=== PATIENT | female | born 1990 | race Caucasian/White ===

== ENCOUNTER → 2016-08-02 | Outpatient (REF) | payer OTHER ==
[2016-08-02 15:50] LABS: FREE T4 0.86 NG/DL (0.76-1.46)
== END ==
LOC: M SFHCLERA 11:12
PROVIDERS: ATTEND Family Medicine
DX: E03.9 Hypothyroidism, unspecified (principal); E66.09 Other obesity due to excess calories

== ENCOUNTER → 2016-08-02 | Outpatient (CLI) | payer OTHER ==
[2016-08-02 15:37] LABS: BASO % 0.2 % (0.0-1.0); EOS # 0.3 K/mm3 (0.0-0.50); EOS % 4.2 % (0.0-3.0); LARGE UNSTAINED CELL # 0.1 K/mm3 (0.0-0.4); LARGE UNSTAINED CELL % 1.2 % (0.0-4.0); LYMPH # 1.7 K/mm3 (1.5-6.5); LYMPH % 23.1 % (24.0-44.0); MEAN CORPUSCULAR HEMOGLOBIN 27.6 pg (27.0-33.0); MEAN CORPUSCULAR HGB CONC 34.1 g/dl (32.0-36.5); MEAN CORPUSCULAR VOLUME 80.9 fl (80.0-96.0); MONO # 0.3 K/mm3 (0.0-0.8); MONO % 3.6 % (0.0-5.0); NEUTROPHILS # 4.9 K/mm3 (1.8-7.7); NEUTROPHILS % 67.7 % (36.0-66.0); PLATELET COUNT, AUTOMATED 308 k/mm3 (150-450); RED CELL DISTRIBUTION WIDTH 13.9 % (11.5-14.5); WHITE BLOOD COUNT 7.2 K/mm3 (4.0-10.0)
[2016-08-03 08:31] LABS: CONTROL LINE INT CTR LINE PRESENT; HIV SCRN NEGATIVE (NEGATIVE); HIV SCRN1 NEGATIVE (NEGATIVE)
[2016-08-03 10:38] LABS: HBsAg Prenatal NEGATIVE (NEGATIVE)
== END ==
LOC: M LRY 11:16
PROVIDERS: ATTEND Obstetrics & Gynecology
DX: E03.9 Hypothyroidism, unspecified (principal); E66.09 Other obesity due to excess calories

== ENCOUNTER → 2016-08-03 | Outpatient (CLI) | payer OTHER ==
[2016-08-03 20:38] LABS: ALBUMIN 3.6 GM/DL (3.2-5.2); ALBUMIN/GLOBULIN RATIO 1.06 (1.00-1.93); ALKALINE PHOSPHATASE 71 U/L (45-117); ALT/SGPT 21 U/L (12-78); ANION GAP 10 MEQ/L (8-16); AST/SGOT 9 U/L (15-37); BILIRUBIN,TOTAL 0.4 MG/DL (0.2-1.0); BLOOD UREA NITROGEN 10 MG/DL (7-18); CALCIUM LEVEL 9.1 MG/DL (8.5-10.1); CARBON DIOXIDE LEVEL 27 MEQ/L (21-32); CHLORIDE LEVEL 105 MEQ/L (98-107); CREATININE FOR GFR 0.82 MG/DL (0.55-1.02); GLOMERULAR FILTRATION RATE > 60.0 (>60); GLUCOSE, FASTING 115 MG/DL (70-105); HCG, SERUM QUANTITATIVE 44806 MIU/ML; SODIUM LEVEL 142 MEQ/L (136-145)
== END ==
LOC: M SMT 14:10
PROVIDERS: ATTEND Obstetrics & Gynecology
DX: O20.0 Threatened abortion (principal)

== ENCOUNTER → 2016-08-05 | Outpatient (CLI) | payer OTHER | LOC: M SMT 13:36 | PROVIDERS: ATTEND Obstetrics & Gynecology | DX: O36.80X0 Pregnancy with inconclusive fetal viability, not applicable or unspecified (principal) ==

== ENCOUNTER → 2016-08-11 | Day surgery (SDC) | payer OTHER ==
[~2016-08-11] VITALS: Ht 165.1 cm; Wt 88.5 kg
[~2016-08-11] MED LIST: CODE30TA3 PO; DOXYCYCLINE HYCLATE 100 MG TAB PO ONE; DOXYCYCLINE HYCLATE 100 MG in D5W MINI-BAG PLUS 100 ML IV ONE; LIDOCAINE 1% SDV INJ 30 ML VIAL As Ordered ONE; LIDOCAINE 1% SDV INJ 30 ML VIAL XX ONE; LR 1,000 ML IV SCH; METHYLERGONOVINE MALEATE 0.2 MG/ML VIAL (J2210) As Ordered ONE; MIDAZOLAM INJ 2 MG/2 ML VIAL (J2250) As Ordered ONE; ONDA1TAB15 PO; ONDANSETRON 4MG/2ML VIAL (J2405) As Ordered ONE; ONDANSETRON 4MG/2ML VIAL (J2405) IV PRN; OXYC1TAB23 PO; PERCOCET 5MG/325MG TAB As Ordered ONE; PROPOFOL 200 MG/20 ML VIAL As Ordered ONE; [UNRECOGNIZED DRUG - REMARK]; dexameTHASONE 4 MG/ML 1ML VIAL (J1100) As Ordered ONE; fentaNYL 100 MCG/2 ML INJECTION (J3010) As Ordered ONE; fentaNYL 100 MCG/2 ML INJECTION (J3010) IV PRN
[2016-08-11 10:24] LABS: MEAN CORPUSCULAR HEMOGLOBIN 27.5 pg (27.0-33.0); MEAN CORPUSCULAR HGB CONC 34.3 g/dl (32.0-36.5); MEAN CORPUSCULAR VOLUME 80.2 fl (80.0-96.0); RED CELL DISTRIBUTION WIDTH 14.8 % (11.5-14.5); WHITE BLOOD COUNT 8.9 K/mm3 (4.0-10.0)
[2016-08-11] MEDS: PERCOCET 5MG/325MG TAB PO PRN ×2 (14:55→15:20)
[2016-08-11 16:10] VITALS: BP 119/57
--- NOTE | 2016-08-11 21:09 | RO ---
DATE OF PROCEDURE: 08/11/2016 PREOPERATIVE DIAGNOSIS: First trimester miscarriage, anembryonic gestation, missed . POSTOPERATIVE DIAGNOSIS: First trimester miscarriage, anembryonic gestation, missed . PROCEDURE PERFORMED: Suction dilation and curettage. FINDINGS: Uterus sounded to 11 cm, intrauterine tissue obtained was grossly consistent with products of conception. SURGEON: Dr. Neymar Marlow DO SLEEP TECHNOLOGIST: ALPHONSO Flood III ANESTHESIA: Local anesthesia(paracervical block) /MAC SPECIMENS TO PATHOLOGY: Intrauterine tissue, products of conception. ESTIMATED BLOOD LOSS: 100 mL. FLUIDS REPLACED: 1.2 liters lactated Ringer's. DRAINS: In and out catheter, 100 mL of urine output COMPLICATIONS: None. PREOPERATIVE ANTIBIOTICS: Doxycycline 100 mg IV times one. INDICATION: The patient is a 26-year-old with a recently diagnosed missed /anembryonic gestation in the first trimester. She was counseled on medical and surgical options for treatment, and she elected to proceed with surgical management via suction dilation and curettage. She did not want to proceed with expectant management DESCRIPTION OF PROCEDURE: The patient was counseled and consented on the risks, benefits, indications and alternatives of the procedure and informed consent was obtained. She was taken to the operating room with an IV running and placed on operating table where anesthesia was administered. She was placed in the low lithotomy position. Anesthesia was found be adequate. She was prepared and draped in a normal sterile fashion. A time-out was performed per protocol. A sterile catheter was placed in the bladder to drain the bladder. Approximately 100 mL of urine was expressed. The sterile catheter was removed. The sterile speculum was placed into the vagina with good visualization of the cervix. The anterior lip of the cervix was grasped with a single-tooth tenaculum and downward traction was applied. A paracervical block was placed, approximately 10 mL of 1% lidocaine was injected for the paracervical block. The cervix was sequentially dilated with Kofi dilators up to #20. A size 7 Vacurette was placed transcervically into the intrauterine cavity and suction was applied. Multiple passes of the Vacurette were performed until there was minimal tissue and blood return was noted. A sharp curettage was performed throughout the intrauterine cavity until a gritty texture was noted throughout. The sharp curette was removed. The Vacurette was placed for an additional pass, with minimal blood and tissue return. Minimal bleeding from the cervical os was noted after removal of the Vacurette. Methergine 0.2 mg IM was administered to maintain uterine tone and hemostasis. The single-tooth tenaculum was removed, and the tenaculum sites were noted to be hemostatic. Minimal bleeding from the cervical os was noted. A sterile speculum was removed. The sponge, lap, needle and instrument counts were correct. The patient tolerated the entire procedure well. She was taken to the post-anesthesia care unit (PACU) in good, stable condition. PAUL
== END | disposition home or self-care (01) ==
LOC: M SDC 09:56
PROVIDERS: ATTEND Obstetrics & Gynecology
DX: O02.1 Missed abortion (principal); E03.9 Hypothyroidism, unspecified; F41.9 Anxiety disorder, unspecified; G43.909 Migraine, unspecified, not intractable, without status migrainosus; R42 Dizziness and giddiness; F43.10 Post-traumatic stress disorder, unspecified; Z88.5 Allergy status to narcotic agent; Z88.6 Allergy status to analgesic agent; Z88.8 Allergy status to other drugs, medicaments and biological substances; Z91.013 Allergy to seafood
CPT/HCPCS: 36415; 59820; 85027; 86850; 86900; 86901; 88305; J1100; J2210; J2250; J2405; J3010

== ENCOUNTER → 2016-08-15 | Day surgery (SDC) | payer OTHER ==
[~2016-08-15] MED LIST changes: +ACETAMINOPHEN 500 MG TAB PO PRN; -DOXYCYCLINE HYCLATE 100 MG TAB PO ONE; -DOXYCYCLINE HYCLATE 100 MG in D5W MINI-BAG PLUS 100 ML IV ONE; +LIDOCAINE 2% INJ 100 MG/5 ML SDV (FOR ANES.) As Ordered ONE; -METHYLERGONOVINE MALEATE 0.2 MG/ML VIAL (J2210) As Ordered ONE; -PERCOCET 5MG/325MG TAB As Ordered ONE; +PERCOCET 5MG/325MG TAB PO PRN; -dexameTHASONE 4 MG/ML 1ML VIAL (J1100) As Ordered ONE
[2016-08-15 18:14] VITALS: BP 127/75
--- NOTE | 2016-08-15 18:53 | RO ---
DATE OF PROCEDURE: 08/15/2016 PREPROCEDURE DIAGNOSIS: Postabortal hematometra. POSTPROCEDURE DIAGNOSIS: Postabortal hematometra. OPERATIVE PROCEDURE: Dilation and curettage (D and C). SURGEON: James Villafuerte MD COMMERCIAL MANAGER: ANESTHESIA: Local sedation. ESTIMATED BLOOD LOSS: Minimal. FINDINGS: Moderate amount of blood with small amount of products of conception. DESCRIPTION OF PROCEDURE: The patient taken to the operating room where IV sedation was given. She was prepped and draped in a sterile fashion in the dorsal lithotomy position. A speculum was placed in the vagina. The anterior lip of the cervix was grasped with a tenaculum and the cervix was injected circumferentially with 20 mL of 1% lidocaine. Cervix was dilated with a tapered dilator. A #8 mm suction curette was placed through the internal os. The suction device was activated. Curette was gently rotated until products of conception and blood were noted coming through the suction tubing. Sharp curettage was performed. Uterine cavity was seen to be empty. All instruments were removed. Sponge and instrument counts were correct.
== END | disposition home or self-care (01) ==
LOC: M SDC 13:33
PROVIDERS: ATTEND Specialist
DX: N85.7 Hematometra (principal); F43.10 Post-traumatic stress disorder, unspecified; F41.9 Anxiety disorder, unspecified
CPT/HCPCS: 59812; 88305; J2250; J2405; J3010

== ENCOUNTER → 2016-11-08 | Outpatient (REF) | payer OTHER ==
[~2016-11-08] MED LIST changes: -ACETAMINOPHEN 500 MG TAB PO PRN; -LIDOCAINE 1% SDV INJ 30 ML VIAL As Ordered ONE; -LIDOCAINE 1% SDV INJ 30 ML VIAL XX ONE; -LIDOCAINE 2% INJ 100 MG/5 ML SDV (FOR ANES.) As Ordered ONE; -LR 1,000 ML IV SCH; -MIDAZOLAM INJ 2 MG/2 ML VIAL (J2250) As Ordered ONE; -ONDANSETRON 4MG/2ML VIAL (J2405) As Ordered ONE; -ONDANSETRON 4MG/2ML VIAL (J2405) IV PRN; -PERCOCET 5MG/325MG TAB PO PRN; -PROPOFOL 200 MG/20 ML VIAL As Ordered ONE; -fentaNYL 100 MCG/2 ML INJECTION (J3010) As Ordered ONE; -fentaNYL 100 MCG/2 ML INJECTION (J3010) IV PRN
[2016-11-08 12:36] LABS: ANION GAP 6 MEQ/L (8-16); BLOOD UREA NITROGEN 14 MG/DL (7-18); CALCIUM LEVEL 9.4 MG/DL (8.5-10.1); CARBON DIOXIDE LEVEL 27 MEQ/L (21-32); CHLORIDE LEVEL 106 MEQ/L (98-107); CREATININE FOR GFR 0.79 MG/DL (0.55-1.02); FREE T4 0.87 NG/DL (0.76-1.46); GLOMERULAR FILTRATION RATE > 60.0 (>60); GLUCOSE, FASTING 88 MG/DL (70-105); POTASSIUM SERUM 4.6 MEQ/L (3.5-5.1); SODIUM LEVEL 139 MEQ/L (136-145)
== END ==
LOC: M SFHCLERA 07:50
PROVIDERS: ATTEND Family Medicine
DX: R30.0 Dysuria (principal)
CPT/HCPCS: 80048; 84439; 84443; 87086; G0463

== ENCOUNTER → 2016-11-09 | Outpatient (REF) | payer OTHER | LOC: M LAB REF 17:41 | PROVIDERS: ATTEND Obstetrics & Gynecology | DX: Z12.4 Encounter for screening for malignant neoplasm of cervix (principal); R87.610 Atypical squamous cells of undetermined significance on cytologic smear of cervix (ASC-US); Z11.3 Encounter for screening for infections with a predominantly sexual mode of transmission ==

== ENCOUNTER → 2016-11-09 | Outpatient (CLI) | payer OTHER | LOC: M SMT 13:17 | PROVIDERS: ATTEND Obstetrics & Gynecology | DX: Z12.4 Encounter for screening for malignant neoplasm of cervix (principal); R87.610 Atypical squamous cells of undetermined significance on cytologic smear of cervix (ASC-US); Z11.3 Encounter for screening for infections with a predominantly sexual mode of transmission; R21 Rash and other nonspecific skin eruption | CPT/HCPCS: 36415; 83036; 87491; 87591; G0123 ==

== ENCOUNTER → 2016-11-22 | Outpatient (CLI) | payer OTHER ==
[~2016-11-22] MED LIST changes: +PRENTAB52 PO
[2016-11-22 20:44] LABS: BASO % 0.5 % (0.0-1.0); EOS # 0.3 K/mm3 (0.0-0.50); EOS % 3.5 % (0.0-3.0); LARGE UNSTAINED CELL # 0.1 K/mm3 (0.0-0.4); LARGE UNSTAINED CELL % 1.4 % (0.0-4.0); LYMPH # 2.5 K/mm3 (1.5-6.5); LYMPH % 26.4 % (24.0-44.0); MEAN CORPUSCULAR HEMOGLOBIN 27.6 pg (27.0-33.0); MEAN CORPUSCULAR HGB CONC 32.8 g/dl (32.0-36.5); MEAN CORPUSCULAR VOLUME 84.2 fl (80.0-96.0); MONO # 0.4 K/mm3 (0.0-0.8); MONO % 4.2 % (0.0-5.0); PLATELET COUNT, AUTOMATED 348 k/mm3 (150-450); RED CELL DISTRIBUTION WIDTH 13.4 % (11.5-14.5); WHITE BLOOD COUNT 9.4 K/mm3 (4.0-10.0)
[2016-11-23 09:59] LABS: HBsAg Prenatal NEGATIVE (NEGATIVE)
== END ==
LOC: M LRY 15:28
PROVIDERS: ATTEND Obstetrics & Gynecology
DX: Z34.81 Encounter for supervision of other normal pregnancy, first trimester (principal)

== ENCOUNTER 2016-11-23 16:44 | Emergency (ER) | payer OTHER ==
[~2016-11-23] VITALS: Ht 165.1 cm; Wt 93.0 kg
[~2016-11-23 16:44] MED LIST changes: -PRENTAB52 PO
[2016-11-23] MEDS ORDERED: PRENTAB52 PO (17:17)
[2016-11-23] MEDS ORDERED: ACETAMINOPHEN 325 MG TAB PO ONE (17:45)
[2016-11-23 18:10] LABS: BASO % 0.5 % (0.0-1.0); EOS # 0.3 K/mm3 (0.0-0.50); EOS % 3.3 % (0.0-3.0); LARGE UNSTAINED CELL # 0.1 K/mm3 (0.0-0.4); LARGE UNSTAINED CELL % 1.3 % (0.0-4.0); LYMPH # 2.4 K/mm3 (1.5-6.5); LYMPH % 25.8 % (24.0-44.0); MEAN CORPUSCULAR HEMOGLOBIN 27.5 pg (27.0-33.0); MEAN CORPUSCULAR HGB CONC 34.1 g/dl (32.0-36.5); MEAN CORPUSCULAR VOLUME 80.7 fl (80.0-96.0); MONO # 0.3 K/mm3 (0.0-0.8); MONO % 3.5 % (0.0-5.0); NEUTROPHILS # 5.8 K/mm3 (1.8-7.7); NEUTROPHILS % 65.6 % (36.0-66.0); PLATELET COUNT, AUTOMATED 350 k/mm3 (150-450); RED CELL DISTRIBUTION WIDTH 13.6 % (11.5-14.5); WHITE BLOOD COUNT 8.8 K/mm3 (4.0-10.0)
[2016-11-23 18:50] LABS: ANION GAP 7 MEQ/L (8-16); BLOOD UREA NITROGEN 11 MG/DL (7-18); CARBON DIOXIDE LEVEL 25 MEQ/L (21-32); CHLORIDE LEVEL 108 MEQ/L (98-107); CREATININE FOR GFR 0.82 MG/DL (0.55-1.02); GLOMERULAR FILTRATION RATE > 60.0 (>60); GLUCOSE, FASTING 96 MG/DL (70-105); HCG, SERUM QUANTITATIVE 7905 MIU/ML; SODIUM LEVEL 140 MEQ/L (136-145)
--- NOTE | 2016-11-23 21:20 | REPUSA ---
CLINICAL HISTORY: Pelvic pain. TECHNIQUE: Realtime sonographic images were obtained in multiple projections. FINDINGS: Limited examination due bowel gas and body habitus. A single gestational sac is visualized measuring 11.4 x 6.6 x 7.3 cm with a mean sac size of 8.4 with an average age of 6 weeks and 6 days. Yolk sac only. No pole at this time. Questionable early versus incomplete AB. Cannot rule out ectopic . The uterus measures 9.8 x 5.6 x 6.4 cm. The right ovary measures 4.0 x 1.5 x 3.4 cm. The left ovary measures 3.3 x 2.0 x 3.1 cm with a dominant follicle measuring 1.5 x 1.7 x 1.6 cm. IMPRESSION: 1. Limited examination due bowel gas and body habitus. 2. Single gestational sac is visualized measuring 11.4 x 6.6 x 7.3 cm with a mean sac size of 8.4 wit h an average age of 6 weeks and 6 days. Yolk sac only. No pole at this time. The findings may represent anembryonic versus incomplete . No definite evidence of ectopic. Clinic al correlation is recommended. 3. Left dominant ovarian follicle. Thank you for your kind referral of this patient. We appreciate the opportunity to participate in thi s patient's care.
[2016-11-23 21:34] VITALS: BP 116/68
== END 2016-11-23 21:36 | disposition home or self-care (01) ==
LOC: M ED 17:58
DX: O99.89 Other specified diseases and conditions complicating pregnancy, childbirth and the puerperium (principal); R10.2 Pelvic and perineal pain; Z3A.01 Less than 8 weeks gestation of pregnancy

== ENCOUNTER 2016-12-07 13:10 | Emergency (ER) | payer OTHER ==
[~2016-12-07] VITALS: Ht 165.1 cm; Wt 90.7 kg
[~2016-12-07 13:10] MED LIST changes: +PRENTAB52 PO
[2016-12-07 13:11] VITALS: BP 110/56
[2016-12-07] MEDS ORDERED: METOCLOPRAMIDE INJ 10MG/2ML VIAL (J2765) IV ONE (14:00)
[2016-12-07] MEDS ORDERED: NS 1,000 ML IV ONE (14:00)
[2016-12-07 14:25] LABS: BASO % 0.1 % (0.0-1.0); EOS # 0.2 K/mm3 (0.0-0.50); EOS % 1.7 % (0.0-3.0); LARGE UNSTAINED CELL % 0.3 % (0.0-4.0); LYMPH # 0.9 K/mm3 (1.5-6.5); MEAN CORPUSCULAR HGB CONC 34.5 g/dl (32.0-36.5); MONO # 0.3 K/mm3 (0.0-0.8); MONO % 2.1 % (0.0-5.0); NEUTROPHILS # 12.2 K/mm3 (1.8-7.7); NEUTROPHILS % 89.7 % (36.0-66.0); PLATELET COUNT, AUTOMATED 312 k/mm3 (150-450); RED CELL DISTRIBUTION WIDTH 13.7 % (11.5-14.5); WHITE BLOOD COUNT 13.6 K/mm3 (4.0-10.0)
[2016-12-07 14:54] LABS: ANION GAP 9 MEQ/L (8-16); BLOOD UREA NITROGEN 8 MG/DL (7-18); CARBON DIOXIDE LEVEL 23 MEQ/L (21-32); CHLORIDE LEVEL 105 MEQ/L (98-107); CREATININE FOR GFR 0.85 MG/DL (0.55-1.02); GLOMERULAR FILTRATION RATE > 60.0 (>60); GLUCOSE, FASTING 102 MG/DL (70-105); POTASSIUM SERUM 3.7 MEQ/L (3.5-5.1); SODIUM LEVEL 137 MEQ/L (136-145)
[2016-12-07] MEDS ORDERED: CVS25TAB16 PO (15:20)
[2016-12-07] MEDS ORDERED: PYRI25TA3 PO (15:20)
== END 2016-12-07 15:30 | disposition home or self-care (01) ==
LOC: M ED 15:04
DX: O21.9 Vomiting of pregnancy, unspecified (principal); Z3A.08 8 weeks gestation of pregnancy
CPT/HCPCS: 80048; 81001; 85025; 96374; 99283; J2765

== ENCOUNTER 2016-12-09 15:47 | Observation (INO) | payer OTHER ==
[~2016-12-09] VITALS: Ht 165.1 cm; Wt 88.5 kg
[~2016-12-09 15:47] MED LIST changes: +CVS25TAB16 PO; +PYRI25TA3 PO
[2016-12-09] MEDS ORDERED: ZOFR4SOL PO (16:07)
[2016-12-09] MEDS ORDERED: APAP325T PO (16:07)
[2016-12-09] MEDS ORDERED: NS 1,000 ML IV ONE (16:30)
[2016-12-09] MEDS ORDERED: ONDA4TAB6 PO (17:00)
[2016-12-09] MEDS ORDERED: TRIA1CR TOP (17:01)
[2016-12-09] MEDS ORDERED: DICY20TA11 PO (17:01)
[2016-12-09] MEDS ORDERED: FLON1SPR (17:01)
[2016-12-09 17:15] LABS: BASO % 0.6 % (0.0-1.0); EOS # 0.1 K/mm3 (0.0-0.50); EOS % 1.3 % (0.0-3.0); LARGE UNSTAINED CELL # 0.1 K/mm3 (0.0-0.4); LARGE UNSTAINED CELL % 1.8 % (0.0-4.0); LYMPH # 1.9 K/mm3 (1.5-6.5); MEAN CORPUSCULAR HEMOGLOBIN 28.2 pg (27.0-33.0); MEAN CORPUSCULAR HGB CONC 34.9 g/dl (32.0-36.5); MEAN CORPUSCULAR VOLUME 80.9 fl (80.0-96.0); MONO # 0.5 K/mm3 (0.0-0.8); NEUTROPHILS # 4.3 K/mm3 (1.8-7.7); NEUTROPHILS % 62.4 % (36.0-66.0); PLATELET COUNT, AUTOMATED 329 k/mm3 (150-450); RED CELL DISTRIBUTION WIDTH 13.6 % (11.5-14.5); WHITE BLOOD COUNT 6.9 K/mm3 (4.0-10.0)
[2016-12-09 17:56] LABS: ANION GAP 7 MEQ/L (8-16); BLOOD UREA NITROGEN 9 MG/DL (7-18); CALCIUM LEVEL 8.6 MG/DL (8.5-10.1); CARBON DIOXIDE LEVEL 26 MEQ/L (21-32); CHLORIDE LEVEL 107 MEQ/L (98-107); CREATININE FOR GFR 0.68 MG/DL (0.55-1.02); GLOMERULAR FILTRATION RATE > 60.0 (>60); GLUCOSE, FASTING 78 MG/DL (70-105); POTASSIUM SERUM 3.6 MEQ/L (3.5-5.1); SODIUM LEVEL 140 MEQ/L (136-145)
[2016-12-09] MEDS ORDERED: METOCLOPRAMIDE INJ 10MG/2ML VIAL (J2765) IV ONE (18:00)
[2016-12-09] MEDS ORDERED: MULTIVITAMIN -ADULT INJECTION 10 ML, THIAMINE INJection 100 MG, FOLIC ACID 1 MG in NS 1... IV ONE (18:00)
[2016-12-09 19:00] VITALS: BP 122/71
[2016-12-09 20:00] VITALS: BP 118/63
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
[2016-12-09] MEDS ORDERED: METOCLOPRAMIDE INJ 10MG/2ML VIAL (J2765) IV PRN (20:30)
[2016-12-09] MEDS ORDERED: ONDANSETRON 4MG/2ML VIAL (J2405) IV PRN (20:30)
[2016-12-09] MEDS ORDERED: ACETAMINOPHEN 500 MG TAB PO PRN (20:30)
[2016-12-09] MEDS: LR 1,000 ML IV SCH (21:08)
[2016-12-10] VITALS: BP 107/51
[2016-12-10] MEDS: LR 1,000 ML IV SCH (04:12)
[2016-12-10 06:47] LABS: MEAN CORPUSCULAR HEMOGLOBIN 27.9 pg (27.0-33.0); MEAN CORPUSCULAR HGB CONC 34.6 g/dl (32.0-36.5); MEAN CORPUSCULAR VOLUME 80.5 fl (80.0-96.0); RED CELL DISTRIBUTION WIDTH 13.8 % (11.5-14.5); WHITE BLOOD COUNT 6.6 K/mm3 (4.0-10.0)
[2016-12-10 06:54] LABS: ALBUMIN 2.6 GM/DL (3.2-5.2); ALBUMIN/GLOBULIN RATIO 0.87 (1.00-1.93); ALKALINE PHOSPHATASE 49 U/L (45-117); ALT/SGPT 32 U/L (12-78); ANION GAP 9 MEQ/L (8-16); AST/SGOT 16 U/L (15-37); BILIRUBIN,TOTAL 0.4 MG/DL (0.2-1.0); BLOOD UREA NITROGEN 6 MG/DL (7-18); CALCIUM LEVEL 8.1 MG/DL (8.5-10.1); CARBON DIOXIDE LEVEL 23 MEQ/L (21-32); CHLORIDE LEVEL 108 MEQ/L (98-107); CREATININE FOR GFR 0.58 MG/DL (0.55-1.02); GLOMERULAR FILTRATION RATE > 60.0 (>60); GLUCOSE, FASTING 81 MG/DL (70-105); POTASSIUM SERUM 3.6 MEQ/L (3.5-5.1); SODIUM LEVEL 140 MEQ/L (136-145); TOTAL PROTEIN 5.6 GM/DL (6.4-8.2)
[2016-12-10 08:00] VITALS: BP 95/51
[2016-12-10] MEDS ORDERED: REGL10TA6 PO (14:57)
== END 2016-12-10 16:00 | disposition home or self-care (01) ==
LOC: M ED 16:50 → M ED INP 18:00 → M PED 18:57
PROVIDERS: ADMIT Specialist; ATTEND Specialist
DX: O21.0 Mild hyperemesis gravidarum (principal); R50.9 Fever, unspecified; Z3A.08 8 weeks gestation of pregnancy; Z88.8 Allergy status to other drugs, medicaments and biological substances
CPT/HCPCS: 36415; 80048; 80053; 85025; 85027; 96361; 96374; 96375; 96376; 99284; J2405; J2765; J3411

== ENCOUNTER → 2017-02-24 | Outpatient (CLI) | payer OTHER ==
[~2017-02-24] MED LIST changes: +APAP325T4 PO; +DICY20TA11 PO; +FLON1SPR; -ONDA1TAB15 PO; +ONDA4TAB5 PO; +ONDA4TAB6 PO; +REGL10TA6 PO; +TRIA1CR TOP; +ZOFR4SOL PO
--- NOTE | 2017-02-24 17:36 | REP ---
HISTORY: anatomy. COMPARISON: None. Multiple ultrasonographic images of the gravid uterus show a single living intrauterine gestation in the cephalic presentation. Doppler interrogation of the heart shows a heart rate of 136 beats per minute. The placenta is anterior and not low lying. The subjective amniotic fluid volume is within normal limits. The cervix measures 3.3 cm in length and is closed. Evaluation of the maternal adnexal spaces showed no abnormalities. The anatomical structures visualized as unremarkable are as follows: Thalami, cavum septum pellucidum, facial features, right and left ventricular outflow tracts, spine, kidneys, cord insertion, three vessel umbilical cord, stomach, urinary bladder, and upper and lower extremities. The cerebellum, cisterna magna, posterior fossa were suboptimally visualized as was four chamber heart view. BPD 4.4 cm = 19 weeks 1 days HC 16.5 cm = 19 weeks 2 days AC 13.2 cm = 18 weeks 5 days FL 2.9 cm = 19 weeks 0 days The estimated weight is 263 grams, which is at the 46th percentile for an 18 week 6 day gestational age. IMPRESSION: Single living intrauterine gestation as described above with an estimated gestational age of 19 weeks 1 day via composite criteria and an estimated date of delivery of 07/20/2017 by today's examination. No anomalies were detected, however, I recommend a followup examination to better visualize the posterior fossa and four chamber heart. Signed by Jose Couch DO 02/27/2017 03:24 P
== END ==
LOC: M RAD 16:04
PROVIDERS: ATTEND Advanced Practice Midwife
DX: Z34.82 Encounter for supervision of other normal pregnancy, second trimester (principal); Z3A.19 19 weeks gestation of pregnancy

== ENCOUNTER → 2017-03-07 | Outpatient (CLI) | payer OTHER | LOC: M SMT 13:40 | PROVIDERS: ATTEND Advanced Practice Midwife | DX: Z13.79 Encounter for other screening for genetic and chromosomal anomalies (principal) ==

== ENCOUNTER → 2017-03-14 | Outpatient (CLI) | payer OTHER ==
--- NOTE | 2017-03-14 21:38 | REP ---
Clinical: Anatomical re-evaluation. Comparison: 02/24/2017 . Findings: Examination demonstrates a single live intrauterine in breech presentation. motion is identified by technologist. Placenta is noted anteriorly and grade one without evidence for placenta previa or abruption. Amniotic fluid volume is normal. Cervix measures 5.2 cm in length and appears closed. No evidence for nuchal cord. Gestational age by LMP 21 weeks 3 days with COLBY 07/22/2017 . Gestational age by current measurements 21 weeks 2 days with COLBY and 17 . FHR equals 140 beats per minute. Estimated weight 461 grams ( 63rd percentile). Anatomical assessment demonstrates normal structures including cranium, choroid plexus, cavum, cerebellum/posterior fossa, lungs, diaphragm, stomach, cord insertion/three-vessel cord, kidneys/bladder, spine, and extremities. Impression: Single live intrauterine in breech presentation demonstrating appropriate interval growth. In conjunction with prior examination evaluation of the heart and ventricular outflow tracts is again limited. The remainder of the examination appears normal. Signed by Steve Grace MD 03/14/2017 09:30 P
== END ==
LOC: M RAD 12:36
PROVIDERS: ATTEND Advanced Practice Midwife
DX: Z34.82 Encounter for supervision of other normal pregnancy, second trimester (principal); Z3A.21 21 weeks gestation of pregnancy

== ENCOUNTER → 2017-03-28 | Outpatient (REF) | payer OTHER | LOC: M SFHCLERA 12:16 | PROVIDERS: ATTEND Family Medicine | DX: R30.0 Dysuria (principal) ==

== ENCOUNTER → 2017-04-05 | Outpatient (CLI) | payer OTHER ==
--- NOTE | 2017-04-05 13:26 | REP ---
OB ULTRASOUND: Real-time sonographic evaluation of the gravid uterus is performed. There is a single living intrauterine gestation. Estimated gestational age is 24 weeks 4 days based on LMP with EDC 08/01/2017. Today's measurements indicate appropriate growth. BPD 59 mm = 24 weeks 1 days, 41st percentile HC 227 mm = 24 weeks 5 days, 52nd percentile AC 193 mm = 24 weeks 0 days, 37th percentile Femur length 44 mm = 24 weeks 3 days, 47th percentile HC/AC ratio 1.18 within normal range. Estimated weight 675 grams, 34th percentile. Cervix is closed and measures 3.6 cm in length. SEEN/GROSSLY UNREMARKABLE Lateral ventricles Yes Posterior fossa Yes Upper lip Yes Four-chamber heart Yes LVOT Yes RVOT Yes Stomach Yes Cord insertion Yes Three vessel cord Yes Kidneys Yes Bladder Yes Spine No position: Breech. Placenta: Anterior and grade 1 with no previa or abruption. Amniotic fluid: Within normal limits. Please note that heart motion was detected, but heart rate image was not stored due to technical error. Signed by Hal Devlin MD 04/05/2017 01:44 P
== END ==
LOC: M RAD 12:16
PROVIDERS: ATTEND Obstetrics & Gynecology
DX: Z34.82 Encounter for supervision of other normal pregnancy, second trimester (principal); Z3A.24 24 weeks gestation of pregnancy

== ENCOUNTER → 2017-04-20 | Outpatient (CLI) | payer OTHER ==
[2017-04-20 17:47] LABS: MEAN CORPUSCULAR HEMOGLOBIN 28.2 pg (27.0-33.0); MEAN CORPUSCULAR HGB CONC 33.2 g/dl (32.0-36.5); MEAN CORPUSCULAR VOLUME 84.9 fl (80.0-96.0); RED CELL DISTRIBUTION WIDTH 14.1 % (11.5-14.5); WHITE BLOOD COUNT 11.6 10^3/uL (4.0-10.0)
== END ==
LOC: M SMT 14:43
PROVIDERS: ATTEND Obstetrics & Gynecology
DX: Z34.82 Encounter for supervision of other normal pregnancy, second trimester (principal)